=== PATIENT | female | born 1980 | race Caucasian/White ===

== ENCOUNTER 2016-05-05 12:13 | Emergency (ER) | payer OTHER ==
[2016-05-05 13:20] VITALS: BP 116/69
--- NOTE | 2016-05-05 14:11 | UC ---
Ear Complaint HPI - HPI Summary HPI Summary: TWO DAYS OF RIGHT EAR PAIN. HX OF SWIMMERS EAR. NO FEVER. NO SORE THROAT - History of Current Complaint Chief Complaint: UCEar Stated Complaint: EAR COMPLAINT Time Seen by Provider: 05/05/16 12:51 Hx Obtained From: Patient, Family/Steeler Hx Last Menstrual Period: 04/28/16 Onset/Duration: Sudden Onset, Lasting Days, Still Present Severity Initially: Moderate Severity Currently: Moderate Associated Signs/Symptoms: Positive: URI Symptoms - Allergies/Home Medications Allergies/Adverse Reactions: Allergies Allergy/AdvReac Type Severity Reaction Status Date / Time No Known Allergies Allergy Verified 11/04/15 13:34 Home Medications: Home Medications Amphetamine-Dextroamphetamine [Adderall 15 mg] 1 tab PO 05/05/16 [History] PMH/Surg Hx/FS Hx/Imm Hx Previously Healthy: Yes Endocrine History Of: Reports: Diabetes, Thyroid Disease - [facility] Cardiovascular History Of: Reports: Cardiac Disorders - ASD/HAD REPAIR IN JULY 2015 Denies: Hypertension Respiratory History Of: Denies: COPD, Asthma GI/ History Of: Denies: Ulcer - Surgical History Surgical History: Yes Surgery Procedure, Year, and Place: t&A. tubes in ears. d&c after miscarriage. ASD REPAIR JULY 2015 - Family History Known Family History: Positive: Diabetes - Social History Occupation: Employed Full-time Lives: With Family Alcohol Use: Occasionally Substance Use Type: None Smoking Status (MU): Light Every Day Tobacco Smoker Type: Cigarettes Amount Used/How Often: up to 1/2 ppd Have You Smoked in the Last Year: Yes - started [employer] 04/15/14 When Did the Patient Quit Smoking/Using Tobacco: April 15.2014 Review of Systems Constitutional: Negative Skin: Negative Eyes: Negative ENT: Ear Ache Respiratory: Negative Cardiovascular: Negative Gastrointestinal: Negative Genitourinary: Negative Motor: Negative Neurovascular: Negative Musculoskeletal: Negative Neurological: Negative Psychological: Negative All Other Systems Reviewed And Are Negative: Yes Physical Exam Triage Information Reviewed: Yes Appearance: Well-Appearing, No Pain Distress, Well-Nourished Vital Signs: Initial Vital Signs Temp 98.3 F 05/05/16 12:51 Pulse 72 05/05/16 12:51 Resp 18 05/05/16 12:51 BP 116/69 05/05/16 12:51 Pulse Ox 99 05/05/16 12:51 Eye Exam: Normal ENT: Positive: Hearing grossly normal, Pharynx normal, TM bulging, TM dull, TM red Dental Exam: Normal Neck exam: Normal Neck: Positive: Supple, Nontender, No Lymphadenopathy Respiratory Exam: Normal Respiratory: Positive: Chest non-tender, Lungs clear, Normal breath sounds, No respiratory distress, No accessory muscle use Cardiovascular Exam: Normal Cardiovascular: Positive: RRR, No Murmur, Pulses Normal Abdominal Exam: Normal Abdomen Description: Positive: Nontender, No Organomegaly Musculoskeletal Exam: Normal Musculoskeletal: Positive: Strength Intact Neurological Exam: Normal Psychological Exam: Normal Skin Exam: Normal Ear Complaint Course/Dx - Differential Dx/Diagnosis Differential Diagnosis/HQI/PQRI: Otitis Externa, Otitis Media Provider Diagnoses: RIGHT OTITIS MEDIA Discharge - Discharge Plan Condition: Stable Disposition: HOME Prescriptions: Amoxicillin/Clavulanate TAB* [Augmentin TAB 875*] 875 mg PO BID #20 tab Patient Education Materials: Otitis Media (ED) Referrals: Fernandez Fu MD [Primary Care Provider] -
== END 2016-05-05 14:13 | disposition home or self-care (01) ==
LOC: UCEAST 12:13
DX: H66.91 Otitis media, unspecified, right ear (principal); E11.9 Type 2 diabetes mellitus without complications; E06.3 Autoimmune thyroiditis; Z87.891 Personal history of nicotine dependence
CPT/HCPCS: 99212; G0463

== ENCOUNTER 2016-06-28 10:10 | Emergency (ER) | payer OTHER ==
--- NOTE | 2016-06-28 11:21 | RAD ---
HISTORY: Left leg trauma COMPARISONS: February 23, 2009 VIEWS: 4, Frontal, lateral, axial, and oblique views of the left knee FINDINGS: BONE DENSITY: Normal. BONES: There is no displaced fracture. JOINTS: There is no arthropathy. There is no suprapatellar joint effusion or lipohemarthrosis. ALIGNMENT: There is no dislocation. SOFT TISSUES: Unremarkable. OTHER FINDINGS: None. IMPRESSION: NO ACUTE OSSEOUS INJURY. IF SYMPTOMS PERSIST, RECOMMEND REPEAT IMAGING.
--- NOTE | 2016-06-28 11:22 | RAD ---
HISTORY: Right leg pain, trauma COMPARISONS: February 23, 2009 VIEWS: 3, Frontal, lateral, and oblique views of the right ankle FINDINGS: BONE DENSITY: Normal. BONES: There is no displaced fracture. JOINTS: There is no arthropathy. ALIGNMENT: There is no dislocation. SOFT TISSUES: Unremarkable. OTHER FINDINGS: None. IMPRESSION: NO ACUTE OSSEOUS INJURY. IF SYMPTOMS PERSIST, RECOMMEND REPEAT IMAGING.
--- NOTE | 2016-06-28 11:23 | RAD ---
HISTORY: Right leg pain, trauma COMPARISONS: None VIEWS: 3, Frontal, lateral, and oblique views of the right foot FINDINGS: BONE DENSITY: Normal. BONES: There is no displaced fracture. JOINTS: There is no arthropathy. ALIGNMENT: There is no dislocation. SOFT TISSUES: Unremarkable. OTHER FINDINGS: None. IMPRESSION: NO ACUTE OSSEOUS INJURY. IF SYMPTOMS PERSIST, RECOMMEND REPEAT IMAGING.
--- NOTE | 2016-06-28 12:02 | UC ---
Marcos Covarrubias Auryana, scribed for Jamal Cole MD on 06/28/16 at 1138 . Lower Extremity/Ankle HPI - HPI Summary HPI Summary: IN ROOM NOTE: 36 year old female presents with right foot and ankle with left knee pain starting yesterday around 1:30 PM. Patient reports that she was cleaning out a closet at work when she fell. She also has right ankle swelling and pain with weight bearing. She report that the left knee pain subsides with rest. PMHx is significant for hypothyroid, DM I (adult onset), atrial septal defect, 2011 admission for infection (unsure specifically), and seasonal allergies. FHx is significant for DM I. Dr. Fu is he PCP. 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 NOTE: Vital signs stable. Temp 98.3. 7/10 right ankle/foot pain. Moderate left knee pain. History of hypothyroid. Visit history is non-contributory to present complaint. NURSE NOTE: fell off a stool hurting left knee and right foot; happened yesterday around 2 pm; it wasn't really starting to hurt alot until last night - History of Current Complaint Chief Complaint: UCLaceration Stated Complaint: ANKLE AND KNEE INJURY Time Seen by Provider: 06/28/16 10:44 Hx Obtained From: Patient Hx Last Menstrual Period: merana Onset/Duration: Sudden Onset, Lasting Days - yesterday, Still Present Severity Initially: Moderate Severity Currently: Moderate Aggravating Factor(s): Standing, Ambulation Alleviating Factor(s): Rest - improves left knee pain Able to Bear Weight: Yes - but with severe pain Related History: Occupational Injury - SEE HPI - Allergies/Home Medications Allergies/Adverse Reactions: Allergies Allergy/AdvReac Type Severity Reaction Status Date / Time No Known Allergies Allergy Verified 11/04/15 13:34 PMH/Surg Hx/FS Hx/Imm Hx Endocrine History Of: Reports: Diabetes, Thyroid Disease - [facility] Cardiovascular History Of: Reports: Cardiac Disorders - ASD/HAD REPAIR IN JULY 2015 Denies: Hypertension Respiratory History Of: Denies: COPD, Asthma GI/ History Of: Denies: Ulcer - Surgical History Surgical History: Yes Surgery Procedure, Year, and Place: t&A. tubes in ears. d&c after miscarriage. ASD REPAIR JULY 2015 - Family History Known Family History: Positive: Diabetes - DM I - Social History Occupation: Employed Full-time Lives: With Family Alcohol Use: Weekly Substance Use Type: None, Marijuana Smoking Status (MU): Light Every Day Tobacco Smoker Type: Cigarettes Amount Used/How Often: up to 1/2 ppd Have You Smoked in the Last Year: Yes - started [employer] 04/15/14 When Did the Patient Quit Smoking/Using Tobacco: April Review of Systems Constitutional: Negative Skin: Other - swelling of right foot and ankle Eyes: Negative ENT: Negative Respiratory: Negative Cardiovascular: Negative Gastrointestinal: Negative Genitourinary: Negative Motor: Negative Neurovascular: Negative Musculoskeletal: Arthralgia - left knee pain, right ankle pain and right foot pain Neurological: Negative Psychological: Negative All Other Systems Reviewed And Are Negative: Yes Physical Exam Triage Information Reviewed: Yes Appearance: Well-Appearing, No Pain Distress, Well-Nourished Vital Signs: Initial Vital Signs Temp 98.3 F 06/28/16 10:28 Vital Signs Reviewed: Yes Eyes: Positive: Conjunctiva Clear ENT: Positive: Hearing grossly normal, Pharynx normal, TMs normal Neck: Positive: Supple, Nontender, No Lymphadenopathy Respiratory: Positive: Chest non-tender, Lungs clear, Normal breath sounds, No respiratory distress Cardiovascular: Positive: RRR, No Murmur Abdomen Description: Positive: Nontender, No Organomegaly, Soft Bowel Sounds: Positive: Present Musculoskeletal: Positive: Strength Intact, Other: Neurological: Positive: Alert Psychological: Positive: Age Appropriate Behavior Skin: Negative: rashes Diagnostics - Radiology RIGHT FOOT XR Xray Interpretation: No Acute Changes - IMPRESSION: NO ACUTE OSSEOUS INJURY. IF SYMPTOMS PERSIST, RECOMMEND REPEAT IMAGING. Radiology Interpretation Completed By: Radiologist RIGHT ANKLE Xray Interpretation: No Acute Changes - IMPRESSION: NO ACUTE OSSEOUS INJURY. IF SYMPTOMS PERSIST, RECOMMEND REPEAT IMAGING. Radiology Interpretation Completed By: Radiologist LEFT KNEE XR Xray Interpretation: No Acute Changes - IMPRESSION: NO ACUTE OSSEOUS INJURY. IF SYMPTOMS PERSIST, RECOMMEND REPEAT IMAGING. Radiology Interpretation Completed By: Radiologist Lower Extremity Course/Dx - Course Course Of Treatment: Her exam reveals tenderness of the left knee and right foot /ankle. There is an obvious ankle sprain on the right and soft tissue injury to right foot and the left knee. Patient was told to return if pain increased or if there is any disability. We have discussed and worked out a plan of rest and treatment. - Differential Dx/Diagnosis Differential Diagnosis/HQI/PQRI: Dislocation, Sprain, Strain Provider Diagnoses: 1st degree sprain of right ankle, lateral aspect. Right foot, ligamentous injury. Left knee: sprain and soft tissue injury quadriceps tendon Discharge - Discharge Plan Condition: Stable Disposition: HOME Patient Education Materials: Ankle Sprain (ED), Knee Sprain (ED) Referrals: Fernandez Fu MD [Primary Care Provider] - Additional Instructions: Thank you for helping with the [employer] survey. WE DISCUSSED: You have not broken any bones but you have a sprain of your right foot and ankle and left knee. Use barbie wraps to knee and right foot. Use gel cast to right ankle. warm moist soaks to areas in the morning; ice for point tenderness to area during the day. Use crutches until you are pain free with weight bearing; then slowly increase activity as you become pain free. "If it hurts, don't do it." Re check for increased pain or disability at any time. This may take a 7-14 days to fully resolve. The documentation as recorded by the Marcos cary Auryana accurately reflects the service I personally performed and the decisions made by me, Jamal Cole MD.
== END 2016-06-28 12:03 | disposition home or self-care (01) ==
LOC: UCEAST 10:10
DX: S93.401A Sprain of unspecified ligament of right ankle, initial encounter (principal); S83.92XA Sprain of unspecified site of left knee, initial encounter; W18.30XA Fall on same level, unspecified, initial encounter; E10.9 Type 1 diabetes mellitus without complications; E06.3 Autoimmune thyroiditis; F12.90 Cannabis use, unspecified, uncomplicated; F17.210 Nicotine dependence, cigarettes, uncomplicated
CPT/HCPCS: 99213; G0463

== ENCOUNTER 2017-01-16 10:12 | Emergency (ER) | payer OTHER ==
[2017-01-16 12:18] VITALS: BP 106/78
--- NOTE | 2017-01-16 13:00 | UC ---
FLU HPI - HPI Summary HPI Summary: 5 DAYS OF MYALGIAS, FATIGUE, RHINITIS, MILD COUGH, SINUS PRESSURE, MALAISE. NO DOCUMENTED FEVER BUT FELT HOT LAST NIGHT. NO FLU SHOT THIS SEASON. - History of Current Complaint Chief Complaint: UCGeneralIllness Stated Complaint: COLD Time Seen by Provider: 01/16/17 12:37 Hx Obtained From: Patient Hx Last Menstrual Period: myrena Onset/Duration: Gradual Onset, Lasting Days, Still Present Severity Currently: Moderate Severity Initially: Moderate Pain Intensity: 5 Pain Scale Used: 0-10 Numeric Associated Signs & Symptoms: Positive: Fever, Myalgia, Cough, Sore Throat, Nasal Congestion, Headache - Allergy/Home Medications Allergies/Adverse Reactions: Allergies Allergy/AdvReac Type Severity Reaction Status Date / Time No Known Allergies Allergy Verified 01/16/17 10:44 PMH/Surg Hx/FS Hx/Imm Hx Endocrine History: Diabetes - TYPE I, Hypothyroidism Other Cardiovascular History: ASD S/P REPAIR 07/2015 - Surgical History Surgical History: Yes Surgery Procedure, Year, and Place: t&A. tubes in ears. d&c after miscarriage. ASD REPAIR JULY 2015 - Family History Known Family History: Positive: Diabetes - DM I Family History: THYROID - Social History Alcohol Use: Weekly Substance Use Type: None, Marijuana Smoking Status (MU): Light Every Day Tobacco Smoker Type: Cigarettes Amount Used/How Often: up to 1/2 ppd Have You Smoked in the Last Year: Yes - started [employer] 04/15/14 When Did the Patient Quit Smoking/Using Tobacco: April Review of Systems Constitutional: Fever - SUBJECTIVE, Fatigue ENT: Sore Throat, Nasal Discharge Respiratory: Cough Cardiovascular: Negative Gastrointestinal: Diarrhea Musculoskeletal: Myalgia Neurological: Headache All Other Systems Reviewed And Are Negative: Yes Physical Exam Triage Information Reviewed: Yes Appearance: No Pain Distress, Well-Nourished, Ill-Appearing - MILD Vital Signs: Initial Vital Signs Temp 98.6 F 01/16/17 10:38 Pulse 84 01/16/17 10:38 Resp 18 01/16/17 10:38 BP 126/74 01/16/17 10:38 Pulse Ox 100 01/16/17 10:38 Vital Signs Reviewed: Yes Eyes: Positive: Conjunctiva Clear ENT: Positive: Hearing grossly normal, Pharynx normal, TMs normal Neck: Positive: Supple, Nontender, No Lymphadenopathy Respiratory Exam: Normal Cardiovascular Exam: Normal Abdomen Description: Positive: Soft Musculoskeletal: Positive: No Edema Neurological: Positive: Alert Psychological: Positive: Age Appropriate Behavior Skin: Negative: rashes Diagnostics - Laboratory Diagnostic Studies Completed/Ordered: RAPID FLU NEGATIVE Flu Course/Dx - Differential Dx/Diagnosis Provider Diagnoses: ACUTE VIRAL SYNDROME Discharge - Discharge Plan Condition: Stable Disposition: HOME Prescriptions: Azithromycin [Azithromycin 500 MG TAB] 500 mg PO DAILY #5 tab Patient Education Materials: Viral Syndrome (ED) Referrals: Fernandez Fu MD [Primary Care Provider] - If Needed Additional Instructions: YOUR SYMPTOMS MAY BE VIRALLY MEDIATED BUT GIVEN THE LENGTH OF TIME YOU HAVE BEEN ILL AND YOUR CHRONIC CONDITIONS WE WILL COVER YOU WITH ANTIBIOTICS. TAKE IT FOR THE FULL COURSE. REST, HYDRATE, OTC MEDS NEEDED. FLU TEST NEGATIVE TODAY. SEEK FOLLOW-UP WITH YOUR PCP IF YOU ARE NOT IMPROVING OVER THE NEXT 1-2 WEEKS.
== END 2017-01-16 13:38 | disposition home or self-care (01) ==
LOC: UCEAST 10:12
DX: B34.9 Viral infection, unspecified (principal); E10.9 Type 1 diabetes mellitus without complications; E03.9 Hypothyroidism, unspecified; F17.210 Nicotine dependence, cigarettes, uncomplicated
CPT/HCPCS: 87502; 99212; G0463

== ENCOUNTER 2017-11-10 14:41 | Emergency (ER) | payer OTHER ==
[2017-11-10 14:49] VITALS: BP 126/77
[2017-11-10] MEDS ORDERED: Albuterol HFA INHALER* 8 gm MDI INH ONE (14:58)
--- NOTE | 2017-11-10 15:04 | UC ---
Respiratory Complaint HPI - HPI Summary HPI Summary: The patient is a 37-year-old female with a one-week history of severe facial sinus pressure, nasal congestion, postnasal drip, and cough. She states that her symptoms of since moved down into her chest and she feels wheezy. She has felt feverish and had some chills. Eyes any chest pain or shortness of breath. She has diabetes. - History of Current Complaint Chief Complaint: UCRespiratory Stated Complaint: SINUS CONGESTION Time Seen by Provider: 11/10/17 14:53 Hx Obtained From: Patient Hx Last Menstrual Period: IUD Onset/Duration: Gradual Onset, Lasting Days Timing: Constant Severity Initially: Mild Severity Currently: Moderate Pain Intensity: 5 Pain Scale Used: 0-10 Numeric Character: Cough: Productive Aggravating Factors: Exertion, Deep Breaths Alleviating Factors: Nothing Associated Signs And Symptoms: Positive: Fever, Chills, Wheezing, Nasal Congestion, Sinus Discomfort - Allergies/Home Medications Allergies/Adverse Reactions: Allergies Allergy/AdvReac Type Severity Reaction Status Date / Time No Known Allergies Allergy Verified 11/10/17 14:49 PMH/Surg Hx/FS Hx/Imm Hx Previously Healthy: Yes Endocrine History: Diabetes, Thyroid Disease - Surgical History Surgical History: Yes Surgery Procedure, Year, and Place: t&A. tubes in ears. d&c after miscarriage. ASD REPAIR JULY 2015 - Family History Known Family History: Positive: Hypertension, Diabetes - DM I Family History: THYROID - Social History Alcohol Use: Occasionally Substance Use Type: None Smoking Status (MU): Light Every Day Tobacco Smoker Type: Cigarettes Amount Used/How Often: up to 1/2 ppd Have You Smoked in the Last Year: Yes - started [employer] 04/15/14 When Did the Patient Quit Smoking/Using Tobacco: April Review of Systems Constitutional: Fever, Chills, Fatigue Skin: Negative Eyes: Negative ENT: Nasal Discharge, Sinus Congestion, Sinus Pain/Tenderness Respiratory: Cough Cardiovascular: Negative Gastrointestinal: Negative Genitourinary: Negative Motor: Negative Neurovascular: Negative Musculoskeletal: Negative Neurological: Negative Psychological: Negative All Other Systems Reviewed And Are Negative: Yes Physical Exam Triage Information Reviewed: Yes Appearance: Well-Appearing, No Pain Distress, Well-Nourished Vital Signs: Initial Vital Signs Temp 98.2 F 11/10/17 14:45 Pulse 90 10/02/18 14:45 Resp 12 11/10/17 14:45 BP 126/77 11/10/17 14:45 Pulse Ox 100 11/10/17 14:45 Vital Signs Reviewed: Yes Eyes: Positive: Conjunctiva Clear ENT: Positive: Hearing grossly normal, Pharynx normal, Nasal congestion, Nasal drainage, TMs normal, Sinus tenderness. Negative: Tonsillar swelling, Tonsillar exudate, Trismus, Muffled voice, Hoarse voice Neck: Positive: Supple, Nontender, No Lymphadenopathy Respiratory: Positive: No respiratory distress, No accessory muscle use, Wheezing Cardiovascular: Positive: RRR, No Murmur Musculoskeletal: Positive: ROM Intact, No Edema Neurological: Positive: Alert Psychological Exam: Normal Skin Exam: Normal UC Diagnostic Evaluation - Laboratory O2 Sat by Pulse Oximetry: 100 - normal/not hypoxic Respiratory Course/Dx - Differential Dx/Diagnosis Provider Diagnoses: acute bronchitis with bronchospasm. sinus congestion Discharge - Sign-Out/Discharge Documenting (check all that apply): Patient Departure All imaging exams completed and their final reports reviewed: No Studies - Discharge Plan Condition: Stable Disposition: HOME Prescriptions: Amoxicillin PO (*) [Amoxicillin 875 MG (*)] 875 mg PO BID #14 tab Fluticasone NASAL SPRAY 50MCG* [Flonase NASAL SPRAY 50MCG*] 2 spray BOTH NARES BID #1 btl Patient Education Materials: Acute Bronchitis (ED) Referrals: Fernandez Fu MD [Primary Care Provider] - 3 Days (if not improved) Additional Instructions: use inhaler as directed recheck for new or worsening symptoms - Billing Disposition and Condition Condition: STABLE Disposition: Home
== END 2017-11-10 15:27 | disposition home or self-care (01) ==
LOC: UCEAST 14:41
DX: J40 Bronchitis, not specified as acute or chronic (principal); R09.81 Nasal congestion; E11.9 Type 2 diabetes mellitus without complications; F17.210 Nicotine dependence, cigarettes, uncomplicated
CPT/HCPCS: 99212; A9270-GY; G0463

== ENCOUNTER 2018-04-15 08:33 | Emergency (ER) | payer OTHER ==
[2018-04-15 08:48] VITALS: BP 118/77
--- NOTE | 2018-04-15 09:15 | ED ---
Skin Complaint - HPI Summary HPI Summary: 37 yo WF p/w left axillary bumps x 1-2 weeks. uses anti-perspirant daily and has been noticing hard red tender nodules popping up - History of Current Complaint Chief Complaint: UCSkin Time Seen by Provider: 04/15/18 09:02 Stated Complaint: UNDER ARM COMPLAINT Hx Obtained From: Patient Hx Last Menstrual Period: IUD Onset/Duration: Started Weeks Ago Timing: Constant Onset Severity: Moderate Current Severity: Moderate Pain Intensity: 6 - Allergy/Home Medications Allergies/Adverse Reactions: Allergies Allergy/AdvReac Type Severity Reaction Status Date / Time No Known Allergies Allergy Verified 04/15/18 08:48 PMH/Surg Hx/FS Hx/Imm Hx Previously Healthy: Yes Endocrine/Hematology History: Reports: Hx Diabetes, Hx Thyroid Disease - [facility] Cardiovascular History: Reports: Other Cardiovascular Problems/Disorders - ATRIAL SEPTUM REPAIR - Denies: Hx Hypertension Respiratory History: Denies: Hx Asthma, Hx Chronic Obstructive Pulmonary Disease (COPD) GI History: Denies: Hx Ulcer - Surgical History Surgery Procedure, Year, and Place: t&A. tubes in ears. d&c after miscarriage. ASD REPAIR JULY 2015 Infectious Disease History: No Infectious Disease History: Denies: Hx Clostridium Difficile, Hx Hepatitis, Hx Human Immunodeficiency Virus (HIV), Hx of Known/Suspected MRSA, Hx Shingles, Hx Tuberculosis, Hx Known/ Suspected VRE, Hx Known/Suspected VRSA, History Other Infectious Disease, Traveled Outside the [place] in Last 30 Days - Family History Known Family History: Positive: Hypertension, Diabetes - DM I Family History: THYROID - Social History Alcohol Use: Occasionally Substance Use Type: Reports: None Smoking Status (MU): Light Every Day Tobacco Smoker Type: Cigarettes Amount Used/How Often: up to 1/2 ppd Have You Smoked in the Last Year: Yes - started [employer] 04/15/14 Review of Systems - ROS Summary Review of Systems Summary: Constitutional: Negative Eyes: Negative ENT: Negative Cardiovascular: Negative Respiratory: Negative Gastrointestinal: Negative Genitourinary: Negative Musculoskeletal: Negative Neurological: Negative Psychological: Normal Skin: SEE HPI All Other Systems Reviewed And Are Negative: Yes All Other Systems Reviewed And Are Negative: Yes Physical Exam - Summary Physical Exam Summary: Vital Signs Reviewed: Yes Skin: Positive: Warm, FOUR 2-3cm erythematous, hard tender nodule-like swelling in left axilla, NON-fluctuant Head/Face: Positive: Normal Head/Face Inspection Eyes: Positive: Normal ENT: Positive: Normal ENT inspection Neck: Positive: Supple Respiratory/Lung Sounds: Positive: Clear to Auscultation Cardiovascular: Positive: Normal, RRR, S1, S2 Abdomen Description: Positive: Nontender Musculoskeletal: Positive: Normal Neurological: Positive: Normal Psychiatric: Positive: Normal, Affect/Mood Appropriate Vital Signs On Initial Exam: Initial Vitals Temp Pulse Resp BP Pulse Ox 36.9 C 81 18 118/77 100 04/15/18 08:43 04/15/18 08:43 04/15/18 08:43 04/15/18 08:43 04/15/18 08:43 Diagnostics - Vital Signs Vital Signs Temp Pulse Resp BP Pulse Ox 04/15/18 08:43 36.9 C 81 18 118/77 100 - Laboratory Lab Statement: Any lab studies that have been ordered have been reviewed, and results considered in the medical decision making process. Course/Dx - Course Assessment/Plan: skin abscesses- not ready to be excised- advised pt for re- eval in 3-4 days if ready for I&D on abx or defer to surgical consult for removal - Diagnoses Provider Diagnoses: Abscess of skin and subcutaneous tissue Discharge - Sign-Out/Discharge Documenting (check all that apply): Patient Departure All imaging exams completed and their final reports reviewed: Yes - Discharge Plan Condition: Stable Disposition: HOME Prescriptions: Sulfamethox/Trimethoprim DS* [Bactrim DS 800/160 TAB*] 1 tab PO BID 10 Days #20 tab Patient Education Materials: Abscess (ED) Referrals: Jamal Lama MD [Medical Doctor] - Additional Instructions: return to clinic in 3-4 days or call surgeon Dr Lama for surgical consult - Billing Disposition and Condition Condition: STABLE Disposition: Home
== END 2018-04-15 09:10 | disposition home or self-care (01) ==
LOC: UCEAST 08:33
DX: L02.412 Cutaneous abscess of left axilla (principal); F17.210 Nicotine dependence, cigarettes, uncomplicated; E11.9 Type 2 diabetes mellitus without complications
CPT/HCPCS: 99212; G0463

== ENCOUNTER 2019-04-26 08:28 | Emergency (ER) | payer OTHER ==
--- OUTSIDE RECORDS SUMMARY | 2019-04-26 08:35 | XMS REPORT | Continuity of Care Document ---
:1980 External Reference #:[id number] Author Name Rubia Newell O.D. Address [address] [place] [address] Care Team Providers Name Role Phone Fernandez Fu M.D. 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 Onset: 12/26/2014 Open-angle glaucoma - borderline Rubia Newell O.D. Onset: 01/15/2016 Type 1 diabetes mellitus with mild Rubia Newell O.D. Onset: 01/15/2016 nonproliferative diabetic retinopathy with macular edema, left eye Type 1 diabetes mellitus Onset: Note: 2001 Type 2 diabetes mellitus Rubia Newell O.D. Onset: 04/14/2019 Social History Type Date Description Comments Sex Unknown ETOH Use Occasionally consumes alcohol Tobacco Use Start: Unknown Light tobacco smoker (10 or fewer cigarettes/day) Recreational Drug Use Denies Drug Use Smoking Status Reviewed: 04/14/19 Light tobacco smoker (10 or fewer cigarettes/day) Allergies, Adverse Reactions, Alerts Description No Known Drug Allergies Medications Active Medications SIG Qnty Indications Ordering Provider Date Levothyroxine Sodium Fernandez Fu M.D. 100mcg Tablets Basaglar Kwikpen Unknown 100Unit/ML Solution Pen-Inject Novolog Flexpen Unknown 100Unit/ML Solution Pen-Inject Amphetamine-Dextroamphet Fernandez Fu M.D. amine 10mg Tablets Vitamin D 3000 - 3500 Unknown 2000Unit Tablets daily Vitamin B12 Unknown 1000mcg Tablets ER Multi Vitamin Daily Unknown Tablets Immunizations Description No Information Available Vital Signs Description No Information Available Results Description No Information Available Procedures Description No Information Available Medical Devices Description No Information Available Encounters Description No Information Available Assessments Date Code Description Provider 04/14/2019 E10.9 Type 1 diabetes mellitus without Rubia Newell O.D. complications 04/14/2019 H40.013 Open angle with borderline findings, low Rubia Newell O.D. risk, bilateral Plan of Treatment 04/14/2019 - Rubia Newell O.D.E10.9 Type 1 diabetes mellitus without complicationsComments:I do not see any diabetic changes in your retinas at this time. It is important to maintain tight blood sugar control.If you notice any changes in your vision, please call the office to be seenH40.013 Open angle with borderline findings, low risk, bilateralComments:Smoking can increase the risk of developing or worsening any eye related disease, as well as affect your overall health. If you are a smoker, we strongly recommend that you quit.If you are not a smoker, we strongly recommend that you do not start. Dr. Newell is considering you a Glaucoma suspect. This means the eye pressure in your eyes are higher than average, your optic nerve appearance is suspicious, or you have strong risk factors; but you have not been diagnosed with Glaucoma. Follow up appointments are very important to keep.Follow up:1 year OCT nerve Functional Status Description No Information Available Mental Status Description No Information Available Referrals Description No Information Available
[2019-04-26 08:46] VITALS: BP 112/74
--- NOTE | 2019-04-26 09:29 | UC ---
Throat Pain/Nasal Dennis HPI - HPI Summary HPI Summary: 38 yo female with sore x one day Step son diagnosed with strep a few days ago no FEVER no COUGH no runny nose no myalgias DM - History of Current Complaint Chief Complaint: UCGeneralIllness Stated Complaint: SORE THROAT Time Seen by Provider: 04/26/19 09:13 Hx Obtained From: Patient Hx Last Menstrual Period: mirena Onset/Duration: Gradual Onset, Lasting Days Severity: Moderate Pain Intensity: 5 Pain Scale Used: 0-10 Numeric Cough: Nonproductive Associated Signs & Symptoms: Positive: Negative Related History: T & A - Allergies/Home Medications Allergies/Adverse Reactions: Allergies Allergy/AdvReac Type Severity Reaction Status Date / Time No Known Allergies Allergy Verified 04/26/19 08:46 Home Medications: Home Medications Levothyroxine TAB* [Synthroid 100 MCG TAB*] 100 mcg PO DAILY 07/13/15 [History Confirmed 04/15/18] Amphetamine-Dextroamphetamine [Adderall 15 mg] 1 tab PO DAILY 05/05/16 [History Confirmed 04/26/19] Amoxicillin PO (*) [Amoxicillin 875 MG (*)] 875 mg PO BID #20 tab 04/26/19 [Rx] Insulin Aspart [Novolog Penfill 100 units/ml 5 ml x 3 pens] 10 units SUBCUT QID 04/26/19 [History Confirmed 04/26/19] Insulin Glargine,Hum.rec.anlog [Basaglar Kwikpen 100 inuts/ml 3 ml x 5 Pens] 35 units SUBCUT DAILY 04/26/19 [History Confirmed 04/26/19] PMH/Surg Hx/FS Hx/Imm Hx Previously Healthy: Yes Endocrine History: Diabetes - Surgical History Surgical History: Yes Surgery Procedure, Year, and Place: t&A. tubes in ears. d&c after miscarriage. ASD REPAIR JULY 2015 - Family History Known Family History: Positive: Hypertension, Diabetes - DM I Family History: THYROID - Social History Alcohol Use: Occasionally Substance Use Type: Marijuana Smoking Status (MU): Light Every Day Tobacco Smoker Type: Cigarettes Amount Used/How Often: up to 1/2 ppd Have You Smoked in the Last Year: Yes - started [employer] 04/15/14 When Did the Patient Quit Smoking/Using Tobacco: April - Immunization History Most Recent Tetanus Shot: UTD Review of Systems All Other Systems Reviewed And Are Negative: Yes Constitutional: Positive: Negative Skin: Positive: Negative Eyes: Positive: Negative ENT: Positive: Sore Throat Respiratory: Positive: Negative Cardiovascular: Positive: Negative Gastrointestinal: Positive: Negative Genitourinary: Positive: Negative Motor: Positive: Negative Neurovascular: Positive: Negative Musculoskeletal: Positive: Negative Neurological/Mental Status: Positive: Negative Psychological: Positive: Negative Physical Exam Triage Information Reviewed: Yes Appearance: Well-Appearing, No Pain Distress, Well-Nourished Vital Signs: Initial Vital Signs Temp 98.1 F 04/26/19 08:42 Pulse 95 04/26/19 08:42 Resp 18 04/26/19 08:42 BP 112/74 04/26/19 08:42 Pulse Ox 100 04/26/19 08:42 Vital Signs Reviewed: Yes Eyes: Positive: Conjunctiva Clear ENT: Positive: Hearing grossly normal, Pharyngeal erythema, Uvula midline. Negative: Nasal congestion, Nasal drainage, Tonsillar swelling, Tonsillar exudate, Trismus, Muffled voice, Hoarse voice, Sinus tenderness Dental Exam: Normal Neck: Positive: Supple, Nontender, Enlarged Nodes @ - ant cevical Respiratory: Positive: Lungs clear, Normal breath sounds, No respiratory distress, No accessory muscle use Cardiovascular: Positive: RRR, No Murmur Abdomen Description: Positive: Nontender, No Organomegaly Bowel Sounds: Positive: Present Musculoskeletal: Positive: ROM Intact, No Edema Neurological: Positive: Alert Psychological Exam: Normal Skin Exam: Normal Throat Pain/Nasal Course/Dx - Differential Dx/Diagnosis Provider Diagnosis: Acute pharyngitis, Strep throat exposure Discharge ED - Sign-Out/Discharge Documenting (check all that apply): Patient Departure All imaging exams completed and their final reports reviewed: No Studies - Discharge Plan Condition: Stable Disposition: HOME Prescriptions: Amoxicillin PO (*) [Amoxicillin 875 MG (*)] 875 mg PO BID #20 tab Patient Education Materials: Pharyngitis (ED) Forms: *Work Release Referrals: Fernandez Fu MD [Primary Care Provider] - If Needed Additional Instructions: please get rechecked for new symptoms (high fever/cough/shortness of breath) recheck in 4 days if not better - Billing Disposition and Condition Condition: STABLE Disposition: Home
== END 2019-04-26 09:53 | disposition home or self-care (01) ==
LOC: UCEAST 08:28
DX: J02.9 Acute pharyngitis, unspecified (principal); F17.210 Nicotine dependence, cigarettes, uncomplicated; E11.9 Type 2 diabetes mellitus without complications; Z79.4 Long term (current) use of insulin; Z20.818 Contact with and (suspected) exposure to other bacterial communicable diseases
CPT/HCPCS: 87651; 99212; G0463

== ENCOUNTER 2022-09-24 12:38 | Inpatient (IN) ==
[2022-09-24] MEDS ORDERED: oxyCODONE/Acetamin 5/325 mg TAB PO ONE ×2 (13:50→20:40)
[2022-09-24 15:00] LABS: ABS Basophils 0.1 10^3/uL (0.0-0.1); ABS Eosinophils 0.2 10^3/uL (0.0-0.5); ABS Lymphocytes 1.1 10^3/uL (1.0-4.8); ABS Neutrophils 8.5 10^3/uL (1.5-7.6); Eosinophil % 2.2 %; Hematocrit 39.2 % (35-45); Hemoglobin 13.5 g/dL (11.5-14.3); Lymphocyte % 10.4 %; Mean Corpuscular Hgb Conc 34.5 g/dL (31-36); Platelet Count 213 10^3/uL (150-450); Red Blood Count 4.22 10^6/uL (3.63-4.92); Red Cell Distribution Width 13.7 % (12-17)
[2022-09-24 15:30] LABS: Albumin 4.2 g/dL (3.2-5.2); Albumin/Globulin Ratio 1.5 (1-3); C Reactive Protein 92.42 mg/L (<8.01); Calcium 8.4 mg/dL (8.6-10.3); Creatinine, Serum 0.73 mg/dL (0.51-0.95); Globulin 2.8 g/dL (2-4); Potassium 3.9 mmol/L (3.5-5.0); Total Bilirubin 0.8 mg/dL (0.2-1.0); eGFR CKD-EPI 104.6 (>60)
[2022-09-24] MEDS ORDERED: Iodixanol (CONTRAST) 320 MG/ML 100 ML SDV IV ONE (15:52)
[2022-09-24] MEDS ORDERED: Piperacillin/Tazobac 3.375 BAG 3.375 GM/100 ML BAG IV ONE (17:53)
[2022-09-24] MEDS ORDERED: Ciproflox/Dexameth OTIC.SUSP 7.5 ML BTL RIGHT EAR ONE (18:22)
[2022-09-24] MEDS ORDERED: Ciprofloxacin 400mg IVPREMIX 400 MG/200 ML BAG IVPB SCH (22:00)
[2022-09-24] MEDS: Ciprofloxacin 400mg IVPREMIX 400 MG/200 ML BAG IVPB SCH (23:37)
[2022-09-25] MEDS ORDERED: Insulin LISPRO FOR INSULIN PUMP SUBCUT SCH (01:00)
[2022-09-25 06:42] LABS: Hematocrit 39.6 % (35-45); Hemoglobin 13.6 g/dL (11.5-14.3); Mean Corpuscular Hemoglobin 31.7 pg (27-33); Mean Corpuscular Hgb Conc 34.3 g/dL (31-36); Mean Corpuscular Volume 92.4 fL (80-97); Mean Platelet Volume 8.1 fL (7.5-11.2); Platelet Count 223 10^3/uL (150-450); Red Blood Count 4.29 10^6/uL (3.63-4.92); Red Cell Distribution Width 13.6 % (12-17); White Blood Count 12.7 10^3/uL (3.8-11.8)
[2022-09-25 06:58] LABS: Calcium 8.7 mg/dL (8.6-10.3); Creatinine, Serum 0.78 mg/dL (0.51-0.95); eGFR CKD-EPI 96.6 (>60)
[2022-09-25] MEDS: Ciprofloxacin 400mg IVPREMIX 400 MG/200 ML BAG IVPB SCH ×2 (08:27→16:48)
[2022-09-25] MEDS ORDERED: Piperacillin/Tazobac 3.375 BAG 3.375 GM/100 ML BAG IV ONE (16:33)
[2022-09-25] MEDS ORDERED: Zosyn per Pharmacy NOTE FOLLOW UP SCH (17:00)
[2022-09-25] MEDS: Ciproflox/Dexameth OTIC.SUSP 7.5 ML BTL RIGHT EAR SCH (22:17)
[2022-09-25] MEDS: ZOSYN 3.375 GM Q8H per EXTENDED INFUSION IV SCH (22:39)
[2022-09-26] MEDS: Ciprofloxacin 400mg IVPREMIX 400 MG/200 ML BAG IVPB SCH ×2 (02:48→10:21)
[2022-09-26] MEDS: ZOSYN 3.375 GM Q8H per EXTENDED INFUSION IV SCH (06:03)
[2022-09-26 08:24] LABS: ABS Basophils 0.1 10^3/uL (0.0-0.1); ABS Eosinophils 0.4 10^3/uL (0.0-0.5); ABS Lymphocytes 1.2 10^3/uL (1.0-4.8); ABS Monocytes 0.8 10^3/uL (0.0-0.9); ABS Neutrophils 5.4 10^3/uL (1.5-7.6); Hematocrit 36.4 % (35-45); Hemoglobin 12.7 g/dL (11.5-14.3); Lymphocyte % 15.2 %; Mean Corpuscular Hgb Conc 34.8 g/dL (31-36); Mean Platelet Volume 8.3 fL (7.5-11.2); Platelet Count 215 10^3/uL (150-450); Red Blood Count 3.96 10^6/uL (3.63-4.92); Red Cell Distribution Width 13.6 % (12-17); White Blood Count 7.9 10^3/uL (3.8-11.8)
[2022-09-26 08:51] LABS: Calcium 8.4 mg/dL (8.6-10.3); Creatinine, Serum 0.83 mg/dL (0.51-0.95); Magnesium 1.9 mg/dL (1.9-2.7); Potassium 4.5 mmol/L (3.5-5.0); eGFR CKD-EPI 89.6 (>60)
[2022-09-26] MEDS: Ciproflox/Dexameth OTIC.SUSP 7.5 ML BTL RIGHT EAR SCH ×2 (09:15→13:45)
[2022-09-26] MEDS ORDERED: ZOSYN 3.375 GM x ONE DOSE over 30 miuntes IV (13:00)
[2022-09-26 14:05] VITALS: BP 117/69
== END 2022-09-26 15:00 | disposition home or self-care (01) | DRG 115 ==
LOC: ED 12:38 → SUATTDRO 21:21 → EDHOLD 21:21 → MED 23:20
PROVIDERS: ADMIT Student in an Organized Health Care Education/Training Program; ATTEND Internal Medicine